=== PATIENT | female | born 1975 | race Caucasian/White ===

== ENCOUNTER 2017-04-09 13:08 | Inpatient (IN) | payer OTHER ==
[2017-04-09] MEDS ORDERED: morphine CARPU-JECT 4 MG/1 ML DISP.SYRIN IVPUSH ONE (14:11)
--- NOTE | 2017-04-09 14:12 | PDOC ---
Attending Attestation - Resident Resident Name: Ally Borja - ED Attending Attestation I have performed the following: I have examined & evaluated the patient, The case was reviewed & discussed with the resident, I agree w/resident's findings & plan, Exceptions are as noted - HPI HPI: 04/09/17 14:07 41y F hx of recent dx of kidney stone (9mm) at [facility], was recommended to stay for lithrorypsy - but left as she had to take care of her child. pt states that she has bene having worsening R sided abd pain radiating down to groin and back. Was told that she can come back to have lithotrypsy but patient presents with worsening flank pain. Pt sates the pain is now unbearable, she has been taking the percocetwithtou significant improvement. no fever/chills, vomiting, duysuria. On exam the patient has mild right cva tenderness Abdomen soft and nontender she appears well, in no distress Will attempt to control the patient's pain with Toradol, morphine if necessary The patient is not currently taking any NSAIDs I suspect this may be sufficient to control her pain however is unable will consider admission for further management - Physicial Exam PE: 04/09/17 16:05 see above - Medical Decision Making 04/09/17 16:04 pt in persistent pain cr at 1.1 cintia dmit for pain management and urology mangaement
[2017-04-09] MEDS ORDERED: morphine CARPU-JECT 10 MG/1 ML DISP.SYRIN ONE (14:18)
[2017-04-09 14:52] LABS: EOS % 1.4 % (0-4.5); HEMATOCRIT 39.4 % (32.4-45.2); HEMOGLOBIN 12.7 GM/dL (10.7-15.3); LYMPH % 32.4 % (8-40); MCHC 32.2 g/dl (32.0-36.0); MEAN CELL VOLUME 83.8 fl (80-96); MEAN PLT VOLUME 9.3 fl (7.5-11.1); MONO % 6.8 % (3.8-10.2); NEUT % 58.4 % (42.8-82.8); PLATELET COUNT 258 K/MM3 (134-434); RDW 15.6 % (11.6-15.6); WHITE BLOOD COUNT 8.1 K/mm3 (4.0-10.0)
[2017-04-09 14:58] LABS: URINE APPEARANCE CLEAR; URINE BILIRUBIN NEGATIVE (NEGATIVE); URINE BLOOD NEGATIVE (NEGATIVE); URINE COLOR LTYELLOW; URINE GLUCOSE (UA) NEGATIVE (NEGATIVE); URINE KETONE NEGATIVE (NEGATIVE); URINE LEUK ESTERASE TRACE (NEGATIVE); URINE NITRITE NEGATIVE (NEGATIVE); URINE PROTEIN NEGATIVE (NEGATIVE); URINE UROBILINOGEN NEGATIVE mg/dL (0.2-1.0)
[2017-04-09 15:01] LABS: EPI CELLS RARE /HPF (FEW)
--- NOTE | 2017-04-09 15:13 | PDOC ---
History of Present Illness - General Chief Complaint: Pain Stated Complaint: KIDNEY PAIN Time Seen by Provider: 04/09/17 14:00 - History of Present Illness Initial Comments: Ms. Cid is a 41yo F with recently diagnosed R 9mm kidney stone at [facility] who presents with severe R sided back/abd pain. She was seen at [facility] last week, was diagnosed with CT scan, and was recommended an admission and scheduled lithotripsy and possible stent. However, she chose not to be admitted because she is a single mom and had to take care of her children. She was discharged w/ Flomax, Ciprofloxacin, and Percocet for pain. The percocet left her nauseous at times, and did not help her, so she moderately adhered to the regimen. She had progressively worsening sharp R flank pain. Denies fevers, chills, malaise. Past History - Past Medical History Allergies/Adverse Reactions: Allergies Allergy/AdvReac Type Severity Reaction Status Date / Time No Known Allergies Allergy Verified 04/09/17 13:13 Home Medications: Ambulatory Orders Ciprofloxacin HCl [Cipro] 500 mg PO BID 04/09/17 Methadone [Dolophine -] 90 mg PO DAILY 04/09/17 Oxycodone HCl/Acetaminophen [Percocet 5-325 mg Tablet] 1 tab PO Q4H 04/09/17 Tamsulosin HCl [Flomax] 0.4 mg PO DAILY 04/09/17 COPD: No DVT: No Kidney Stones: Yes Other medical history: hx of heroin abuse , on methadone - Surgical History Cholecystectomy: Yes - Suicide/Smoking/Psychosocial Hx Smoking History: Current every day smoker Have you smoked in the past 12 months: Yes Number of Cigarettes Smoked Daily: 10 Information on smoking cessation initiated: Yes 'Breaking Loose' booklet given: 04/09/17 Hx Alcohol Use: No Drug/Substance Use Hx: No Substance Use Type: None *Physical Exam - Vital Signs Last Vital Signs Temp Pulse Resp BP Pulse Ox 98.5 F 86 18 147/91 100 04/09/17 13:14 04/09/17 13:14 04/09/17 13:14 04/09/17 13:14 04/09/17 13:14 - Physical Exam Comments: GEN: AAOx3, Moderate distress due to pain HEENT: PERRLA, EOMi CV: S1, S2, RRR LUNG: CTABL ABD: Soft, diffusely uncomfortable, but especailly TTP in RLQ with radiation to back, exquisit R flank tenderness MSK: No edema, no erythema NEURO: CN 2-12 intact ED Treatment Course - LABORATORY CBC & Chemistry Diagram: 04/09/17 14:38 04/09/17 14:38 - ADDITIONAL ORDERS Additional order review: Laboratory Results 04/09/17 14:38 Urine Color Ltyellow Urine Appearance Clear Urine pH 7.0 Ur Specific [place] 1.013 Urine Protein Negative Urine Glucose (UA) Negative Urine Ketones Negative Urine Blood Negative Urine Nitrite Negative Urine Bilirubin Negative Urine Urobilinogen Negative Ur Leukocyte Esterase Trace Urine WBC (Auto) 11 Urine RBC (Auto) None Ur Epithelial Cells Rare 04/09/17 14:38 RBC 4.70 MCV 83.8 MCHC 32.2 RDW 15.6 MPV 9.3 Neutrophils % 58.4 Lymphocytes % 32.4 Monocytes % 6.8 Eosinophils % 1.4 Basophils % 1.0 - Medications Given in the ED: ED Medications Discontinued Medications Generic Name Dose Route Start Last Admin Trade Name Serenity PRN Reason Stop Dose Admin Morphine Sulfate 4 mg 04/09/17 14:11 04/09/17 14:37 Morphine Injection - IVPUSH 04/09/17 14:12 4 mg ONCE ONE Administration Medical Decision Making - Medical Decision Making 41yo F with recently diagnosed Right 9mm kidney stone diagnosed at [facility]. Was scheduled for a procedure (?lithotripsy vs stent), but the pain when the patient was home her pain was unbearable. Patient stated she would rather have any procedure done here, as she lives in [place]. Will focus on pain control. If pain is not controlled, will admit and consult Urology. --IV Morphine 4mg x1 now --CBC, CMP, UA, bHCG 04/09/17 14:15 Labs WNL, Cr 1.1, UA negative. CF On re-examination patient patient writhing in pain, moving in multiple directions to find comfort. IV Tordol ordered 04/09/17 16:19 On re-examination, patient is still complaining of pain. Will admit for intractable pain. Contacted Dr. Hebert as consult who is aware of the case. Will microblog Symphony 04/09/17 16:48 [employer] Leigha Lemus returned call. Accepted obs admission. Requested stat kidney/ bladder ultrasound to rule out hydronephrosis. On re-examination pt admitted to being prior heroine addict, but currently has been clean on Methadone 90 daily. 04/09/17 19:12 Awaiting Renal U/S, signed out to Dr. Harden *DC/Admit/Observation/Transfer Diagnosis at time of Disposition: Kidney stone on right side - Discharge Dispostion Admit: Yes - Referrals - Patient Instructions - Post Discharge Activity
[2017-04-09 15:18] LABS: HCG,QUALITATIVE URINE NEGATIVE
[2017-04-09] MEDS ORDERED: KETOROLAC TROMETHAMINE 30 MG/1 ML VIAL IVPUSH ONE (15:18)
[2017-04-09] MEDS ORDERED: KETOROLAC TROMETHAMINE 30 MG/1 ML VIAL ONE ×2 (15:20→15:24)
[2017-04-09 15:25] LABS: ALBUMIN 3.7 g/dl (3.4-5.0); ANION GAP 7 (8-16); BILIRUBIN,TOTAL 0.2 mg/dL (0.2-1.0); BLOOD UREA NITROGEN 9 mg/dL (7-18); CALCIUM 8.5 mg/dL (8.5-10.1); CHLORIDE 106 mmol/L (98-107); CO2 25 mmol/L (21-32); CREATININE 1.1 mg/dL (0.55-1.02); GLUCOSE,RANDOM 90 mg/dL (74-106); POTASSIUM 4.3 mmol/L (3.5-5.1); SGOT/AST 10 U/L (15-37); SGPT/ALT 18 U/L (12-78); SODIUM 138 mmol/L (136-145)
[2017-04-09 15:26] LABS: ALK PHOS 102 U/L (45-117)
[2017-04-09] MEDS ORDERED: HYDROmorphone HCL CARPU-JECT 2 MG/1 ML DISP.SYRIN IVPB PRN (20:05)
--- NOTE | 2017-04-09 20:05 | CON.GU ---
Consult Consult Specialty:: Referred by:: ED Reason for Consultation:: right renal colic - History of Present Illness Chief Complaint: right renal colic History of Present Illness: 41 year old female with right sided pain. the pain is localized at the RLQ and radiates to the right hip. No fevers. She was seen at [facility] on and had a CT which showed a 12x9mm right UPJ stone with hydro. Urine culture was negative. She returns with severe pain as described above/. - History Source History Provided By: Patient, Medical Record Limitations to Obtaining History: No Limitations - Past Medical History Renal/: Yes: Renal Calculi. No: UTI - Alcohol/Substance Use Hx Alcohol Use: No - Smoking History Smoking history: Current every day smoker Have you smoked in the past 12 months: Yes Aproximately how many cigarettes per day: 10 Home Medications - Allergies Allergies/Adverse Reactions: Allergies Allergy/AdvReac Type Severity Reaction Status Date / Time No Known Allergies Allergy Verified 04/09/17 13:13 - Home Medications Home Medications: Ambulatory Orders Ciprofloxacin HCl [Cipro] 500 mg PO BID 04/09/17 Methadone [Dolophine -] 90 mg PO DAILY 04/09/17 Oxycodone HCl/Acetaminophen [Percocet 5-325 mg Tablet] 1 tab PO Q4H 04/09/17 Tamsulosin HCl [Flomax] 0.4 mg PO DAILY 04/09/17 Review of Systems - Review of Systems Constitutional: denies: Chills, Fever Gastrointestinal: reports: Nausea, Vomiting Genitourinary: reports: Pain. denies: Burning, Dysuria, Flank Pain, Frequency ( pain is rlq and right hip), Hematuria Physical Exam- Vital Signs: Vital Signs Temperature 98.5 F 04/09/17 13:14 Pulse Rate 68 04/09/17 17:47 Respiratory Rate 20 04/09/17 17:47 Blood Pressure 120/70 04/09/17 17:47 O2 Sat by Pulse Oximetry (%) 100 04/09/17 17:47 Constitutional: Yes: Well Nourished, No Distress, Calm Gastrointestinal: Yes: Soft Renal/: No: Bladder Distention, CVA Tenderness - Left, CVA Tenderness - Right Labs: CBC, BMP 04/09/17 14:38 04/09/17 14:38 Problem List - Problems (1) Kidney stone on right side Assessment/Plan: right upj stone. Pain is atypical for the CT findings. Sonogram repeated here , no hydro preliminary, but awaiting official read. No fevers/infection or any signs of sepsis. Will hydrate, pain meds, antibiotics and re-evaulate in the morning. If pain is controlled, patient is offered outpatient ESWL, otherwise she will need ureteroscopic laser litho/stent placement. Code(s): N20.0 - CALCULUS OF KIDNEY
[2017-04-09] MEDS ORDERED: DEXTROSE 5%-0.45% SALINE 1,000 ML IV SCH (20:15)
[2017-04-09] MEDS ORDERED: TAMSULOSIN HCL 0.4 MG CAP.ER.24H (FP) PO ONE (21:30)
[2017-04-09] MEDS: KETOROLAC TROMETHAMINE 15 MG/ML VIAL IM SCH (21:43)
--- NOTE | 2017-04-09 22:03 | PN ---
Teaching Attending Note Name of Resident: Najma Jett ATTENDING PHYSICIAN STATEMENT I saw and evaluated the patient. I reviewed the resident's note and discussed the case with the resident. I agree with the resident's findings and plan as documented. SUBJECTIVE: PAtient recently diagnosed with nephrolithiasis 9mm at [facility], signed out AMA and today presented to our ED with the same complaint and nausea. OBJECTIVE: Gen:A&Ox3 in acute distress, afebrile HEENT:NC. AT, PERRLA, EOMI, MMM LUNGS: CTA CVS: RRR, S1,S2 Abd: Soft, tender in Right CVA, BS+, no mass Ext: Nl ROM, no Edema Neuro: CN 2-12 intact no focal deficit CBC, BMP 04/09/17 14:38 04/09/17 14:38 Urine Test Results Urine Color Ltyellow 04/09/17 14:38 Urine Appearance Clear 04/09/17 14:38 Urine pH 7.0 (5.0-8.0) 04/09/17 14:38 Ur Specific [place] 1.013 (1.001-1.035) 04/09/17 14:38 Urine Protein Negative (NEGATIVE) 04/09/17 14:38 Urine Glucose (UA) Negative (NEGATIVE) 04/09/17 14:38 Urine Ketones Negative (NEGATIVE) 04/09/17 14:38 Urine Blood Negative (NEGATIVE) 04/09/17 14:38 Urine Nitrite Negative (NEGATIVE) 04/09/17 14:38 Urine Bilirubin Negative (NEGATIVE) 04/09/17 14:38 Ur Leukocyte Esterase Trace (NEGATIVE) 04/09/17 14:38 Ur Epithelial Cells Rare /HPF (FEW) 04/09/17 14:38 ASSESSMENT AND PLAN: Nephrolithiasis Right side NPO, IVF, Flomax, Levofloxacin, pain medication as needed. Urology consult. Continue home medications. Case d/w residents.
--- NOTE | 2017-04-09 22:10 | HP ---
CHIEF COMPLAINT: " Right sided flank pain and inguinal pain" PCP: No PCP HISTORY OF PRESENT ILLNESS: Patient is a 41-year-old female presented to the ED with the chief complaint of worsening " Right sided flank pain and inguinal pain" x 2 days. As per the patient, she had similar pain last week for which she went to [place] ED was found to have Right sided renal calculus ~9mm (do not have medical records from [place]). Patient says they offered lithotripxy, however she had to sign out AMA to take care of her 9yr old son. She was then scheduled for a Lithotripsy for Tuesday04/13/2017. Since last night, patient reports of being unwell, had nausea and vomiting which progressively got worse this morning. It was associated with excruciating pain over the right flank and inguinal area, 10/10 in intensity, kicking in nature, non radiating, no relieving factors. Hence she came in to the ED for further evaluation and treatment. Patient states that she has noticed decreased urinary frequency. Denies dysuria , urgency, frequency or incontinence. Bowel habit normal. Sleep/Appetite decreased since illness. ER course was notable for: (1) Afebrile, hemodynamically stable (2) Renal ultrasound- official read pending (3) IV Fluids, Toradol, Dilaudid Recent Travel: None PAST MEDICAL HISTORY: Recently diagnosed kidney stones, h/o heroine abuse PAST SURGICAL HISTORY: Cholecystectomy and 1 [place] section Social History: Smokin/2 a pack since she was 13 yrs old. Alcohol: Denies Drugs: Current Marijuana user, IV heroine use 6 yrs ago. Family History: Father has h/o kidney stones, family h/o of DM, HTN, cardiac issues. Allergies No Known Allergies Allergy (Verified 04/09/17 13:13) HOME MEDICATIONS: Home Medications Medication Instructions Recorded Ciprofloxacin HCl [Cipro] 500 mg PO BID 04/09/17 Methadone [Dolophine -] 90 mg PO DAILY 04/09/17 Oxycodone HCl/Acetaminophen 1 tab PO Q4H 04/09/17 [Percocet 5-325 mg Tablet] Tamsulosin HCl [Flomax] 0.4 mg PO DAILY 04/09/17 REVIEW OF SYSTEMS CONSTITUTIONAL: Absent: fever, chills, diaphoresis, generalized weakness, malaise, loss of appetite, weight change HEENT: Absent: rhinorrhea, nasal congestion, throat pain, throat swelling, difficulty swallowing, mouth swelling, ear pain, eye pain, visual changes CARDIOVASCULAR: Absent: chest pain, syncope, palpitations, irregular heart rate, lightheadedness , peripheral edema RESPIRATORY: Absent: cough, shortness of breath, dyspnea with exertion, orthopnea, wheezing, stridor, hemoptysis GASTROINTESTINAL: Absent: abdominal pain, abdominal distension, nausea, vomiting, diarrhea, constipation, melena, hematochezia GENITOURINARY: Present: flank pain Absent: dysuria, frequency, urgency, hesitancy, hematuria,genital pain MUSCULOSKELETAL: Absent: myalgia, arthralgia, joint swelling, back pain, neck pain SKIN: Absent: rash, itching, pallor HEMATOLOGIC/IMMUNOLOGIC: Absent: easy bleeding, easy bruising, lymphadenopathy, frequent infections ENDOCRINE: Absent: unexplained weight gain, unexplained weight loss, heat intolerance, cold intolerance NEUROLOGIC: Absent: headache, focal weakness or paresthesias, dizziness, unsteady gait, seizure, mental status changes, bladder or bowel incontinence PSYCHIATRIC: Absent: anxiety, depression, suicidal or homicidal ideation, hallucinations. PHYSICAL EXAMINATION Vital Signs - 24 hr 04/09/17 04/09/17 04/09/17 13:14 16:36 17:47 Temperature 98.5 F Pulse Rate 86 Pulse Rate [ 68 Radial] Respiratory 18 20 Rate Blood Pressure 147/91 Blood Pressure 120/70 [Left Arm] O2 Sat by Pulse 100 98 100 Oximetry (%) GENERAL: Young female, sitting uncomfortably due to pain, Awake, alert, and fully oriented, in no acute distress. HEAD: Normal with no signs of trauma. EYES: EOM intact, no pallor or icterus. EARS, NOSE, THROAT: Ears normal. Moist mucous membranes. NECK: Normal range of motion, supple without lymphadenopathy, JVD, or masses. LUNGS: Breath sounds equal, clear to auscultation bilaterally. No wheezes, and no crackles. No accessory muscle use. HEART: Regular rate and rhythm, normal S1 and S2 without murmur. ABDOMEN: Soft, tenderness in the Right lower quadrant, not distended, normoactive bowel sounds, no guarding, no rebound, no masses. No hepatomegaly or splenomegaly. MUSCULOSKELETAL: Normal range of motion at all joints. No bony deformities or tenderness. Right CVA tenderness +. UPPER EXTREMITIES: 2+ pulses, warm, well-perfused. No cyanosis. No clubbing. No peripheral edema. LOWER EXTREMITIES: 2+ pulses, warm, well-perfused. No calf tenderness. No peripheral edema. NEUROLOGICAL: No facial droop, power 5/5 in all extremities, Cranial nerves II- XII intact. Normal speech. Gait not observed. PSYCHIATRIC: Cooperative. Good eye contact. Appropriate mood and affect. SKIN: Warm, dry, normal turgor, no rashes or lesions noted, normal capillary refill. Laboratory Results - last 24 hr 04/09/17 04/09/17 04/09/17 14:38 14:38 14:38 WBC 8.1 RBC 4.70 Hgb 12.7 Hct 39.4 MCV 83.8 MCH 27.0 MCHC 32.2 RDW 15.6 Plt Count 258 MPV 9.3 Neutrophils % 58.4 Lymphocytes % 32.4 Monocytes % 6.8 Eosinophils % 1.4 Basophils % 1.0 Sodium 138 Potassium 4.3 Chloride 106 Carbon Dioxide 25 Anion Gap 7 L BUN 9 Creatinine 1.1 H Creat Clearance w eGFR 55.30 Random Glucose 90 Calcium 8.5 Total Bilirubin 0.2 AST 10 L ALT 18 Alkaline Phosphatase 102 Total Protein 7.0 Albumin 3.7 Urine Color Ltyellow Urine Appearance Clear Urine pH 7.0 Ur Specific [place] 1.013 Urine Protein Negative Urine Glucose (UA) Negative Urine Ketones Negative Urine Blood Negative Urine Nitrite Negative Urine Bilirubin Negative Urine Urobilinogen Negative Ur Leukocyte Esterase Trace Urine WBC (Auto) 11 Urine RBC (Auto) None Ur Epithelial Cells Rare Urine HCG, Qual Negative ASSESSMENT/PLAN: Patient is a 41-year-old female with significant past medical history of Recently diagnosed kidney stones, h/o heroine abuse presented to the ED with the chief complaint of worsening " Right sided flank pain and inguinal pain" x 2 days. # Right renal calculus Dx to have renal calculus a week ago at [place], was scheduled for a lithotripsy next week c/o worsening severe flank pain and Right lower quadrant abdominal pain, 10/ 10 in intensity Admitted in Med-Surg/Inpatient NPO for possible stone removal and stent placement D5-1/2 NS @ 83 mls/hr Dilaudid 2mg Q3H Toradol 15 mg IM Q6H PRN IV Levaquin 750mg Daily (Qtc is 477, caution use) Flomax 0.[address] Tidwell consult appreciated # H/O IV heroine abuse Last use was 6 yrs ago Urine tox pending Pt states she takes Methadone. Day team please kindly confirm with her pharmacy. # Acute Kidney Injury likely post obstructive IV Hydration Should improve after stone removal Avoid nephrotoxic drugs # Asymptomatic bradycardia EKG showed sinus bradycardia, rate 59bpm # FEN IV D5-1/2 NS @ 83mls.hr Electrolytes to be repeated in am NPO for possible procedure # Prophylaxis For DVT: Ambulating, scds, heparin sq TID after surgery For GI: Not indicated # Code Status: Full Code # Dispo: Discharge depends on post surgical recovery. # Medication: Please confirm all meds with the pharmacy. Illness, Investigation and Plan of care explained to the patient. She verbalized understanding. Case discussed with Dr. Wellington. Visit type - Emergency Visit Emergency Visit: Yes ED Registration Date: 04/09/17 Care time: The patient presented to the Emergency Department on the above date and was hospitalized for further evaluation of their emergent condition. - New Patient This patient is new to me today: Yes Date on this admission: 04/10/17 - Critical Care Critical Care patient: No
[2017-04-09 22:37] VITALS: BMI 29.1
[2017-04-09] MEDS ORDERED: PNEUMOC 13-VAL CONJ-DIP CRM/PF 0.5 ML DISP.SYRIN IM ONE (22:37)
[2017-04-09] MEDS ORDERED: FLU VACCINE QUAD 60 MCG/0.5 ML (MDV 17-18) IM ONE (23:00)
[2017-04-10] MEDS: KETOROLAC TROMETHAMINE 15 MG/ML VIAL IM SCH ×3 (00:01→14:06)
[2017-04-10] MEDS ORDERED: LEVOFLOXACIN 750 MG IVPB 750 MG/150 ML BAG IVPB SCH (02:45)
[2017-04-10 05:30] LABS: COCAINE, UR NEGATIVE ng/ml (CUTOFF=300); PHENCYCLIDINE,URINE NEGATIVE ng/ml (CUTOFF=25); URINE AMPHETAMINES NEGATIVE ng/ml (CUTOFF=500); URINE BARBITURATES NEGATIVE ng/ml (CUTOFF=200); URINE BENZODIAZEPINES NEGATIVE ng/ml (CUTOFF=200)
[2017-04-10 05:32] LABS: METHADONE, UR POSITIVE ng/ml (CUTOFF=300); OPIATES, URI POSITIVE ng/ml (CUTOFF=300)
[2017-04-10] MEDS ORDERED: FLU VACCINE QUAD 60 MCG/0.5 ML (MDV 17-18) IM ONE (09:00)
[2017-04-10 09:14] LABS: BASO % 0.7 % (0-2.0); EOS % 2.2 % (0-4.5); HEMATOCRIT 36.9 % (32.4-45.2); HEMOGLOBIN 11.6 GM/dL (10.7-15.3); LYMPH % 24.8 % (8-40); MCH 26.4 pg (25.7-33.7); MCHC 31.3 g/dl (32.0-36.0); MEAN CELL VOLUME 84.3 fl (80-96); MEAN PLT VOLUME 9.7 fl (7.5-11.1); NEUT % 65.3 % (42.8-82.8); PLATELET COUNT 193 K/MM3 (134-434); RBC 4.38 M/mm3 (3.60-5.2); RDW 15.3 % (11.6-15.6); WHITE BLOOD COUNT 6.5 K/mm3 (4.0-10.0)
[2017-04-10 09:36] LABS: CHLORIDE 107 mmol/L (98-107); INR 1.08 (0.82-1.09); POTASSIUM 4.8 mmol/L (3.5-5.1); PROTHROMBIN TIME (PATIENT) 12.2 SEC (9.98-11.88); SODIUM 138 mmol/L (136-145)
[2017-04-10 09:40] LABS: ANION GAP 8 (8-16); BLOOD UREA NITROGEN 11 mg/dL (7-18); CALCIUM 8.6 mg/dL (8.5-10.1); CO2 23 mmol/L (21-32); CREATININE 0.8 mg/dL (0.55-1.02); GLUCOSE,RANDOM 107 mg/dL (74-106)
[2017-04-10 10:27] VITALS: TEMP 97.7
[2017-04-10] MEDS ORDERED: HYDROmorphone HCL CARPU-JECT 2 MG/1 ML DISP.SYRIN ONE (10:56)
--- NOTE | 2017-04-10 11:33 | PN ---
Progress Note (short form) - Note Progress Note: Subjective: The patient was seen and examined at the bedside, she has complaints of right sided back pain that radiates to her right suprapubic region. Current Medications Generic Name Dose Route Start Last Admin Trade Name Serenity PRN Reason Stop Dose Admin Hydromorphone HCl 2 mg 04/09/17 20:05 04/10/17 11:00 Dilaudid Injection - IVPB 2 mg Q3H PRN Administration PAIN Dextrose/Sodium Chloride 1,000 mls @ 150 mls/hr 04/09/17 20:15 04/09/17 21:45 D5-1/2ns - IV 150 mls/hr ASDIR JOCELYNE Administration Levofloxacin 750 mg in 150 mls @ 100 mls/hr 04/10/17 02:45 04/10/17 03:18 Levaquin 750 Mg Premixed Ivpb - IVPB 100 mls/hr HS JOCELYNE Administration Influenza Virus Vaccine Quadrival 60 mcg 04/09/17 23:00 Flulaval Quad [id number] IM 04/09/17 23:01 .ONCE ONE Ketorolac Tromethamine 15 mg 04/09/17 20:45 04/10/17 05:29 Toradol Injection - IM 04/14/17 20:44 15 mg Q6HPO JOCELYNE Administration Pneumococcal 13-Valent Conj Vacc 0.5 ml 04/09/17 22:37 Prevnar 13 Syringe - IM 04/09/17 22:38 .ONCE ONE Objective: Vital Signs Period Temp Pulse Resp BP Sys/Harvey Pulse Ox Last 24 Hr 97.7 F-98.5 F 66-86 18-20 109-147/62-91 98-100 Physical Exam: General: NAD, A&Ox3 Patient refused exam stating she was in too much pain CBCD WBC 6.5 K/mm3 (4.0-10.0) 04/10/17 08:07 RBC 4.38 M/mm3 (3.60-5.2) 04/10/17 08:07 Hgb 11.6 GM/dL (10.7-15.3) 04/10/17 08:07 Hct 36.9 % (32.4-45.2) 04/10/17 08:07 MCV 84.3 fl (80-96) 04/10/17 08:07 MCHC 31.3 g/dl (32.0-36.0) L 04/10/17 08:07 RDW 15.3 % (11.6-15.6) 04/10/17 08:07 Plt Count 193 K/MM3 (134-434) D 04/10/17 08:07 MPV 9.7 fl (7.5-11.1) 04/10/17 08:07 CMP Sodium 138 mmol/L (136-145) 04/10/17 08:07 Potassium 4.8 mmol/L (3.5-5.1) 04/10/17 08:07 Chloride 107 mmol/L (98-107) 04/10/17 08:07 Carbon Dioxide 23 mmol/L (21-32) 04/10/17 08:07 Anion Gap 8 (8-16) 04/10/17 08:07 BUN 11 mg/dL (7-18) 04/10/17 08:07 Creatinine 0.8 mg/dL (0.55-1.02) 04/10/17 08:07 Creat Clearance w eGFR 55.30 (>60) 04/09/17 14:38 Random Glucose 107 mg/dL (74-106) H 04/10/17 08:07 Calcium 8.6 mg/dL (8.5-10.1) 04/10/17 08:07 Total Bilirubin 0.2 mg/dL (0.2-1.0) 04/09/17 14:38 AST 10 U/L (15-37) L 04/09/17 14:38 ALT 18 U/L (12-78) 04/09/17 14:38 Alkaline Phosphatase 102 U/L (45-117) 04/09/17 14:38 Total Protein 7.0 g/dl (6.4-8.2) 04/09/17 14:38 Albumin 3.7 g/dl (3.4-5.0) 04/09/17 14:38 Assessment: This is a 41 year old female with PMHx of heroine abuse, recently diagnosed right kidney stone, cholecystectomy, who presented to the ED with right sided flank pain and inguinal pain. Plan: 1) Right UPJ calculi - Kidney ultrasound with mild hydro - UA with trace leuk estrace, f/u urine culture - IV fluids - Pain management - Continue Levaquin - Continue Flomax - NPO for possible urological procedure today - Appreciate urology consult 2) Hx of heroine abuse - Resume Methadone 3) F/E/N: - IV fluids - Monitor electrolytes - NPO 4) Prophylaxis: - Hold all chemical DVT prophylaxis for possible procedure today - OOB ambulating 5) Dispo: - Once condition improves CODE STATUS: FULL CODE Visit type - Emergency Visit Emergency Visit: Yes ED Registration Date: 04/09/17 Care time: The patient presented to the Emergency Department on the above date and was hospitalized for further evaluation of their emergent condition. - New Patient This patient is new to me today: Yes Date on this admission: 04/10/17 - Critical Care Critical Care patient: No
--- NOTE | 2017-04-10 12:48 | EKG ---
Test Reason : Blood Pressure : / mmHG Vent. Rate : 059 BPM Atrial Rate : 059 BPM P-R Int : 148 ms QRS Dur : 094 ms QT Int : 482 ms P-R-T Axes : 068 065 038 degrees QTc Int : 477 ms SINUS BRADYCARDIA WITH SINUS ARRHYTHMIA OTHERWISE NORMAL ECG NO PREVIOUS ECGS AVAILABLE Confirmed by Dwain Schwartz ([id number]) on 04/10/2017 12:48:27 PM Referred By: HOSPITALIST Confirmed By:Dwain Schwartz
--- NOTE | 2017-04-10 13:36 | PN ---
Progress Note (short form) - Note Progress Note: Afebrile VSS pain is present but much improved. No CVAT Discharge home wth pain meds. plan for short term outpatient follow up and outpatient lithotripsy Problem List - Problems (1) Kidney stone on right side Code(s): N20.0 - CALCULUS OF KIDNEY
[2017-04-10] MEDS ORDERED: ACETAMINOPHEN 325 MG TABLET (FP) PO PRN (13:54)
--- NOTE | 2017-04-10 14:03 | DS ---
Physical Examination Vital Signs: Vital Signs Temperature 97.7 F 04/10/17 08:13 Pulse Rate 66 04/10/17 08:13 Respiratory Rate 20 04/10/17 08:13 Blood Pressure 109/72 04/10/17 08:13 O2 Sat by Pulse Oximetry (%) 100 04/10/17 08:13 Labs: CBC, BMP 04/10/17 08:07 04/10/17 08:07 Discharge Summary Reason For Visit: CALCULUS OF RIGHT KIDNEY Current Active Problems Kidney stone on right side (Acute) Condition: Improved - Instructions Diet, Activity, Other Instructions: Please return to the ED with new, persistent, or worsening symptoms. Please follow-up with providers as indicated. Continue taking Ciprofloxacin 500mg by mouth twice a day. Referrals: Priyanka Monet [Primary Care Provider] - 1 Week Isaak Tidwell MD [Staff Physician] - (Please call Dr. Tidwell's office tomorrow morning (04/10) to schedule an appointment for a lithotripsy. ) Disposition: HOME - Home Medications Comprehensive Discharge Medication List: Ambulatory Orders Ciprofloxacin HCl [Cipro] 500 mg PO BID 04/09/17 Methadone [Dolophine -] 90 mg PO DAILY 04/09/17 Oxycodone HCl/Acetaminophen [Percocet 5-325 mg Tablet] 1 tab PO Q4H 04/09/17 Tamsulosin HCl [Flomax] 0.4 mg PO DAILY 04/09/17
[2017-04-10 14:37] VITALS: BP 114/71; PULSE 68
[2017-04-11] MEDS ORDERED: METHADONE HCL 40 MG DISPERSABLE TABLET PO SCH (10:00)
== END 2017-04-10 14:27 | disposition home or self-care (01) | DRG 465 ==
LOC: JER 13:08 → JERBED 17:11 → OBSVTOIN 22:01 → JERBED 04-10 14:27
PROVIDERS: ADMIT Hospitalist; ATTEND Nurse Practitioner Family
DX: N13.2 Hydronephrosis with renal and ureteral calculous obstruction (principal); F17.200 Nicotine dependence, unspecified, uncomplicated; N17.9 Acute kidney failure, unspecified; R00.1 Bradycardia, unspecified; F11.10 Opioid abuse, uncomplicated
CPT/HCPCS: 36415; 76775-TC; 80048; 80053; 80307; 81003; 81015; 84703; 85025; 85610; 93005; 93010; 99285-25; G0378